=== PATIENT | male | born 2000 | race Caucasian/White ===

== ENCOUNTER 2019-12-11 01:00 | Inpatient (IN) | payer SELFPAY ==
[~2019-12-11] VITALS: Ht 162.6 cm; Wt 103.4 kg
[2019-12-11 01:07] VITALS: Ht 162.6 cm; Wt 103.4 kg
--- NOTE | 2019-12-11 01:24 | NUR ---
ASSUMED CARE OF CLIENT AT THIS TIME WITH C/O N/V DENIES DIARRHEA SINCE THIS AFTERNOON . ASSISTED INTOGOWN AND DATABASE SECURITY ADMINISTRATOR
[2019-12-11 02:17] LABS: BASOPHIL % 0 % (0-2); PLATELET COUNT 399 x10^3mcL (130-400); RED CELL DISTRIBUTION WIDTH 11.6 % (11.5-14.5)
[2019-12-11 02:29] LABS: CALCIUM 10.8 mg/dL (8.5-10.1); CARBON DIOXIDE 22.5 mmol/L (21-32); CHLORIDE SERUM 97 mmol/L (98-107); CREATININE SERUM 2.3 mg/dL (0.7-1.3); GFR1 39 mL/min; GLUCOSE SERUM 154 mg/dL (74-106); POTASSIUM SERUM 3.7 mmol/L (3.5-5.1); SODIUM SERUM 138 mmol/L (136-145)
[2019-12-11 02:33] LABS: ALKALINE PHOSPHATASE 88 U/L (46-116); ALT/SGPT 121 U/L (16-63); AMYLASE 85 U/L (25-115); AST/SGOT 48 U/L (15-37); BILIRUBIN TOTAL 0.69 mg/dL (0.20-1.00); LIPASE 134 IU/L (73-393)
[2019-12-11 02:34] LABS: ALBUMIN 5.8 g/dL (3.4-5.0); TOTAL PROTEIN, SERUM 10.4 g/dL (6.4-8.2)
[2019-12-11 03:22] LABS: UA SPECIFIC GRAVITY >=1.030 (1.005-1.035); microscopic required? YES; urine erythrocyte NEGATIVE (NEGATIVE)
[2019-12-11 04:07] LABS: AMPHETAMINE QUAL UR NONE DETECTED (See below)
--- NOTE | 2019-12-11 04:32 | NUR ---
REPORT CALLED TO MANUEL PATIENT BEING TRANSPORTED TO FLOOR ROOM 251-B IN STABLE CONDITION. PATIENT DOES HAVE A CELL PHONE
--- NOTE | 2019-12-11 04:55 | NUR ---
RECEIVED PATIENT FROM ER VIA WHEELCHAIR ACCOMPANIED BY RN. PATIENT RESTING IN BED, A/O X4, VERBALLY RESPONSIVE. BREATHING E/U ON ROOM AIR, SPO2 96%, DENIES SOB. MED-SURG PATIENT. ABD SOFT AND ROUND, DENIES NAUSEA AND VOMITING @ THIS TIME, PROVIDED EMESIS BAG @ BEDSIDE, C/O OF 3/10 ABD PAIN, STATES THAT PAIN IS TOLERABLE AND DOES NOT NEED PAIN MEDICATIONS @ THIS TIME. AMBULATORY. NO EDEMA NOTED. IV RAC AND IV R HAND INTACT AND FLUSHED WELL. CALL LIGHT WITHIN REACH, BED IN LOWEST POSITION. WILL CONTINUE TO MONTIOR.
[2019-12-11 06:15] VITALS: BP 126/85
--- NOTE | 2019-12-11 06:29 | NUR ---
PATIENT RESTING IN BED, WITH EYES CLOSED. EVEN CHEST RISE AND FALL. SHOWS NO SIGN OF PAIN OR DISTRESS. CURRENTLY INFUSING FLAGYL VIA IV RAC. CALL LIGHT WITHIN REACH, BED IN LOWEST POSITION. WILL ENDORSE CARE TO DAY NURSE.
[2019-12-11 09:13] LABS: PLATELET COUNT 317 x10^3mcL (130-400); RED CELL DISTRIBUTION WIDTH 12.2 % (11.5-14.5)
[2019-12-11 09:43] LABS: ALBUMIN 4.2 g/dL (3.4-5.0); ALKALINE PHOSPHATASE 61 U/L (46-116); ALT/SGPT 86 U/L (16-63); AST/SGOT 33 U/L (15-37); BILIRUBIN TOTAL 0.6 mg/dL (0.20-1.00); CALCIUM 9.4 mg/dL (8.5-10.1); CARBON DIOXIDE 20.9 mmol/L (21-32); CHLORIDE SERUM 104 mmol/L (98-107); CREATININE SERUM 1.1 mg/dL (0.7-1.3); GFR1 > 60 mL/min; GLUCOSE SERUM 98 mg/dL (74-106); POTASSIUM SERUM 3.8 mmol/L (3.5-5.1); SODIUM SERUM 140 mmol/L (136-145)
[2019-12-11 09:46] LABS: T3 TOTAL 1.46 ng/mL
[2019-12-11 09:56] LABS: FREE T4 1.39 ng/dL (0.76-1.46); FREE THYROXINE INDEX 4.4 ug/dL (1.4-4.5); T4(THYROXINE) 13.3 ug/dL (4.7-13.3)
[2019-12-11 11:23] LABS: CHOLESTEROL/HDL RATIO 3.8; MAGNESIUM 2.9 mg/dL (1.8-2.4); PHOSPHOROUS 5.3 mg/dL (2.5-4.9)
[2019-12-11 11:34] LABS: MONOCYTE 7.9 % (0-7); SEGMENTED NEUTROPHILS 85.7 % (37-75); rbc morphology (normal/abnorm) NORMAL (NORMAL)
[2019-12-11 12:12] VITALS: BP 116/66
[2019-12-11 16:22] VITALS: BP 109/69
--- NOTE | 2019-12-11 17:36 | NUR ---
PATIENT DENIES ANY ABDOMINAL PAIN. DENIES DIARRHEA OR ANY BOWEL MOVEMENT. VITAL SIGNS STABLE. CONTINUING IV FLUID HYDRATION, FLAGYL AND CIPRO.WILL CONTINUE TO MONITOR PATIENT.
--- NOTE | 2019-12-11 20:00 | NUR ---
PATIENT RESTING IN BED, A/O X4, VERBALLY RESPONSIVE. BREATHING E/U ON ROOM AIR, 96%, DENIES SOB. MED-SURG PATIENT. ABD SOFT AND ROUND, DENIES N/V, AND ABD PAIN @ THIS TIME, STATES HE "FEELS ALOT BETTER" AND HE HAS GOOD APPETITE. NO EDEMA NOTED. AMBULATORY WITH SHOWER PRIVILEGES. IV TO R HAND AND RAC, BOTH INTACT, FLUSHED AND NS INFUSING @ 100 ML/HR @ IV RAC. CALL LIGHT WITHIN REACH, BED IN LOWEST POSITION. WILL CONTINUE TO MONITOR.
[2019-12-11 20:18] VITALS: BP 126/75
--- NOTE | 2019-12-12 00:45 | NUR ---
PATIENT RESTING IN BED WITH EYES CLOSED. EVEN CHEST RISE AND FALL. SHOWS NO SIGN OF PAIN OR DISTRESS. IV RAC INFUSING NS @ 100 ML/HR. CALL LIGHT WITHIN REACH, BED IN LOWEST POSITION. WILL CONTINUE TO MONITOR.
[2019-12-12 06:09] VITALS: BP 107/71
--- NOTE | 2019-12-12 06:20 | NUR ---
PATIENT RESTING IN BED, BREATHING E/U ON ROOM AIR, SPO2 99%. MED-SURG PATIENT. HE STATES THAT HE "FEELS GOOD", AND DENIES SOB, PAIN AND N/V. IV R HAND AND RAC BOTH INTACT, IV RAC INFUSING NS @ 100 ML/HR. NO SIGNIFICANT CHANGES DURING SHIFT, ALL NEEDS MET, CALL LIGHT WTIHIN REACH, WILL ENDORSE CARE TO DAY NURSE.
[2019-12-12 07:30] VITALS: BP 99/80
[2019-12-12 07:31] LABS: BASOPHIL % 0.5 % (0-2); PLATELET COUNT 268 x10^3mcL (130-400); RED CELL DISTRIBUTION WIDTH 12.5 % (11.5-14.5)
[2019-12-12 08:17] LABS: CALCIUM 9.3 mg/dL (8.5-10.1); CARBON DIOXIDE 29.3 mmol/L (21-32); CHLORIDE SERUM 103 mmol/L (98-107); CREATININE SERUM 0.8 mg/dL (0.7-1.3); GFR1 > 60 mL/min; GLUCOSE SERUM 89 mg/dL (74-106); MAGNESIUM 2.8 mg/dL (1.8-2.4); PHOSPHOROUS 2.9 mg/dL (2.5-4.9); POTASSIUM SERUM 3.8 mmol/L (3.5-5.1); SODIUM SERUM 139 mmol/L (136-145)
[2019-12-12] MEDS ORDERED: CIPRO250 MG PO (12:02)
[2019-12-12] MEDS ORDERED: FLAGYL500 MG PO (12:03)
[2019-12-12] MEDS ORDERED: ZOF4 PO (12:04)
[2019-12-12 12:20] VITALS: BP 116/70
[2019-12-12 12:23] VITALS: BP 116/70
--- NOTE | 2019-12-12 14:09 | NUR ---
PATIENT DENIES ANY ABOOMINAL PAIN, HAD TWO NORMAL BOWEL MOVEMENT. VITAL SIGNS STABLE. 200 CC NORNAL SALINE BOLUS GIVEN BEFORE DISCHARGE PATIENT. DISCHARGED PATIENT HOME. DISCHARGE INSTRUCTIONS AND PAPER GIVEN AND VERBALIZED UNDERSTANDING. DISCONTINUED IV LINES. PATIENT TOOK ALL HIS BELONGINGS. HIS FAMILY CAME TO TAKE HIM AT AROUND 1400.
--- NOTE | 2019-12-12 15:54 | NUR ---
Discount pharmacy card and list to low cost medical clinics given to patient.
== END 2019-12-12 13:57 | disposition home or self-care (01) | DRG 871 ==
LOC: ED 01:00 → MU 03:38
PROVIDERS: Emergency Medicine; ADMIT Internal Medicine; ATTEND Internal Medicine
DX: A41.9 Sepsis, unspecified organism (principal); N17.0 Acute kidney failure with tubular necrosis; Z20.828 Contact with and (suspected) exposure to other viral communicable diseases; E83.52 Hypercalcemia; E66.9 Obesity, unspecified; Z71.3 Dietary counseling and surveillance; A08.4 Viral intestinal infection, unspecified; Z68.38 Body mass index [BMI] 38.0-38.9, adult
CPT/HCPCS: 83880; 84439; 87046; 87046-59; G0378; G0480; J0744; J1200; J1885; J2405; J2765; J3490; J7030; J7050; J7060; Q0092

== ENCOUNTER 2020-01-21 06:01 | Emergency (ER) | payer MEDICAID ==
[~2020-01-21] VITALS: Ht 162.6 cm; Wt 102.1 kg
[~2020-01-21 06:01] MED LIST: CIPRO250 MG PO; FLAGYL500 MG PO; ZOF4 PO
[2020-01-21 06:22] VITALS: Ht 162.6 cm; Wt 102.1 kg
[2020-01-21 08:35] LABS: CALCIUM 8.6 mg/dL (8.5-10.1); CHLORIDE SERUM 101 mmol/L (98-107); CREATININE SERUM 0.7 mg/dL (0.7-1.3); GFR1 > 60 mL/min; GLUCOSE SERUM 94 mg/dL (74-106); POTASSIUM SERUM 3.3 mmol/L (3.5-5.1); SODIUM SERUM 132 mmol/L (136-145)
[2020-01-21 08:40] LABS: ALBUMIN 3.5 g/dL (3.4-5.0); ALKALINE PHOSPHATASE 58 U/L (46-116); ALT/SGPT 51 U/L (16-63); AST/SGOT 21 U/L (15-37); BILIRUBIN TOTAL 0.5 mg/dL (0.20-1.00); LIPASE 134 IU/L (73-393); TOTAL PROTEIN, SERUM 7.2 g/dL (6.4-8.2)
[2020-01-21 08:57] LABS: BASOPHIL % 0.4 % (0-2); PLATELET COUNT 225 x10^3mcL (130-400); RED CELL DISTRIBUTION WIDTH 12.2 % (11.5-14.5)
[2020-01-21 09:43] VITALS: BP 122/78
== END 2020-01-21 09:43 | disposition home or self-care (01) ==
LOC: ED 06:01
PROVIDERS: Emergency Medicine
DX: K52.9 Noninfective gastroenteritis and colitis, unspecified (principal)
CPT/HCPCS: J2405; J7030